=== PATIENT | female | born 1970 | race Caucasian/White ===

== ENCOUNTER 2018-07-20 10:33 | Emergency (ER) | payer SELFPAY ==
--- NOTE | 2018-07-20 11:45 | ER Document Report ---
ED General - General Chief Complaint: Numbness Stated Complaint: NUMBNESS/HANDS,LEFT LEG Time Seen by Provider: 07/20/18 11:45 Notes: Patient is a 47-year-old female with peripheral neuropathy that presents to the emergency department for chief complaint of worsening peripheral neuropathy. Patient states that she recently switched jobs, and has been moving and stocking shelves, at [employer], and is not used to doing that, and has been flaring up her peripheral neuropathy, she states it has been more painful for her, been on her feet more often. She does take gabapentin 200 mg 3 times daily , and has been taking Motrin to help with this which does help to a degree, but she wanted to have this further evaluated. She currently does not have a primary care physician because she lost insurance, and wanted to seek treatment for her neuropathy. She denies any worsening of the numbness or tingling that she usually has. Is mainly her pain. She currently rates it as a 4 out of 10, and chronic in nature, she does have pins and needles sensation. She also denies any recent fevers, chills, night sweats, chest pain, shortness of breath , nausea, vomiting or abdominal pain. Past Medical History: Peripheral neuropathy, spinal stenosis, psoriatic arthritis, hypertension Past Surgical History: Hysterectomy Social History: Denies tobacco, alcohol or drug use Family History: Reviewed and noncontributory for presenting illness Allergies: Reviewed, see documented allergy list. REVIEW OF SYSTEMS: Unless otherwise stated in this report the patient's positive and negative responses for review of systems for constitutional, eyes, ENT, cardiovascular, respiratory, gastrointestinal, neurological, genitourinary, musculoskeletal, and integumentary systems and related systems to the presenting problem are either as stated in the HPI or were not pertinent or were negative for the symptoms and/or complaints related to the presenting medical problem. PHYSICAL EXAMINATION: Vital signs reviewed, nursing noted reviewed. GENERAL: Well-appearing, well-nourished and in no acute distress. HEAD: Atraumatic, normocephalic. EYES: Eyes appear normal, extraocular movements intact, sclera anicteric, conjunctiva are normal. ENT: nares patent, oropharynx clear without exudates. Moist mucous membranes. NECK: Normal range of motion, supple without lymphadenopathy LUNGS: Breath sounds clear to auscultation bilaterally and equal. No wheezes rales or rhonchi. HEART: Regular rate and rhythm without murmurs ABDOMEN: Soft, nontender, normoactive bowel sounds. No rebound, guarding, or rigidity. No masses appreciated. EXTREMITIES: Nontender, good range of motion, no pitting or edema. Mild tenderness to palpation of the soles of the feet, and the hands, but no neurological deficits noted. NEUROLOGICAL: No focal neurological deficits. Moves all extremities spontaneously Motor and sensory grossly intact on exam. PSYCH: Normal mood, normal affect. SKIN: Warm, Dry, normal turgor, no rashes or lesions noted on exposed skin TRAVEL OUTSIDE OF THE [place] IN LAST 30 DAYS: No - Related Data Allergies/Adverse Reactions: Sulfa (Sulfonamide Antibiotics) Allergy (Severe, Verified 07/20/18 10:34) Hives Past Medical History - Social History Smoking Status: Current Every Day Smoker Family History: Reviewed & Not Pertinent - Past Medical History Cardiac Medical History: Reports: Hx Hypertension - on meds Denies: Hx Coronary Artery Disease, Hx Heart Attack Pulmonary Medical History: Reports: Hx Asthma - no problems for 2 years Denies: Hx Bronchitis, Hx COPD, Hx Pneumonia Neurological Medical History: Denies: Hx Cerebrovascular Accident, Hx Seizures Musculoskeletal Medical History: Denies Hx Arthritis - Immunizations Hx Diphtheria, Pertussis, Tetanus Vaccination: Yes Physical Exam - Vital signs Vitals: Temp Pulse Resp BP Pulse Ox 98.3 F 82 18 150/69 H 99 07/20/18 10:40 07/20/18 10:40 07/20/18 10:40 07/20/18 10:40 07/20/18 10:40 Course - Re-evaluation Re-evalutation: Patient seen and examined vital signs reviewed. Patient was evaluated as appropriate for the patient's presenting symptoms and complaint, with consideration of any critical or life threatening conditions that may be associated with their obtained history and exam as noted above. The patient was re-evaluated and was stable Evaluation was most consistent with peripheral neuropathy, patient's symptoms are acute on chronic symptoms, that have been exacerbated by her current occupation, discharge her home with a short prescription for tramadol, and increase her gabapentin dosing from 200 mg to 400 mg 3 times daily, have her follow-up with her neurologist, and provide work excuse so that she can rest to improve her symptoms Plan of care was discussed with the patient at this point, after careful consideration I feel that that patient can be discharged from the emergency department, the patient was educated treatments and reasons to return to the emergency department based on their presumed diagnosis as noted above, they were advised to followup with a primary care physician in 2-3 days. Patient was agreeable to plan of care. *Note is created using voice recognition software and may contain spelling, syntax or grammatical errors. - Vital Signs Vital signs: Temp Pulse Resp BP Pulse Ox 98.3 F 82 14 136/72 H 98 07/20/18 10:40 07/20/18 10:40 07/20/18 12:01 07/20/18 12:01 07/20/18 12:01 Discharge - Discharge Clinical Impression: Peripheral neuropathy Qualifiers: Peripheral neuropathy type: polyneuropathy, unspecified Qualified Code(s): G62.9 - Polyneuropathy, unspecified Condition: Stable Disposition: HOME, SELF-CARE Instructions: Neuropathy ([facility]) Additional Instructions: Increase dosing of gabapentin to 400mg three times daily, then follow-up with neurology and take the tramadol only for breakthrough pain. Prescriptions: Gabapentin 400 mg PO TID #30 capsule Tramadol HCl 50 mg PO Q8H PRN #10 tablet PRN Reason: general pain Forms: Return to Work Referrals: CLAUDIA COSTA MD [Primary Care Provider] - Follow up in 3-5 days [facility] [Provider Group] - Follow up as needed
[2018-07-20 12:39] VITALS: BP 136/72
== END 2018-07-20 12:50 | disposition home or self-care (01) ==
LOC: ER 10:33
DX: G62.9 Polyneuropathy, unspecified (principal); R20.0 Anesthesia of skin; I10 Essential (primary) hypertension; F17.200 Nicotine dependence, unspecified, uncomplicated; Z90.710 Acquired absence of both cervix and uterus; Z88.2 Allergy status to sulfonamides
CPT/HCPCS: 99283